=== PATIENT | female | born 1945 | race Caucasian/White ===

== ENCOUNTER 2017-02-27 12:41 | Observation (INO) | payer OTHER, MEDICARE ==
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
[2017-02-27 13:06] LABS: % IMMATURE GRANULYOCYTES 0.3 % (0.0-1.1); ABSOLUTE IMMATURE GRANULOCYTES 0.02 10^3/uL (0.00-0.10); ADD DIFF? NO; ADD MORPH? NO; ADD SCAN? NO; ATYPICAL LYMPHOCYTE FLAG 0 (0-99); FRAGMENT RBC FLAG 0 (0-99); HEMATOCRIT 43.3 % (38.0-47.0); HEMOGLOBIN 14.6 g/dL (12.6-16.3); LEFT SHIFT FLG 0 (0-99); LIPEMIA HEMOLYSIS FLAG 80 (0-99); MEAN CELL HEMOGLOBIN 31.6 pg (27.9-34.1); MEAN CELL HEMOGLOBIN CONCENTR. 33.7 g/dL (32.4-36.7); MEAN CELL VOLUME 93.7 fL (81.5-99.8); MEAN PLATELET VOLUME 10.7 fL (8.7-11.7); PLATELET CLUMPS FLAG 40 (0-99); PLATELET COUNT 214 10^3/uL (150-400); RED BLOOD CELL COUNT 4.62 10^6/uL (4.18-5.33); RED CELL DISTRIBUTION WIDTH 12.8 % (11.5-15.2)
[2017-02-27 13:16] LABS: PROTIME(PATIENT) 13.1 SEC (12.0-15.0)
[2017-02-27 13:17] LABS: APTT 26.4 SEC (23.0-38.0)
[2017-02-27 13:20] LABS: ANION GAP 12 mEq/L (8-16); CALCIUM 9.5 mg/dL (8.5-10.4); CARBON DIOXIDE 22 mEq/l (22-31); CHLORIDE 103 mEq/L (97-110); CREATININE 1.1 mg/dL (0.6-1.0); GLOMERULAR FILTRATION RATE 49; GLUCOSE 86 mg/dL (70-100); POTASSIUM 4.4 mEq/L (3.5-5.2); SODIUM 137 mEq/L (134-144)
--- NOTE | 2017-02-27 13:30 | CPEKG ---
Heart Rate: 72 RR Interval: 833 P-R Interval: 160 QRSD Interval: 82 QT Interval: 388 QTC Interval: 425 P Collins: 64 QRS Collins: 39 T Wave Collins: 68 EKG Severity - BORDERLINE ECG - EKG Impression: SINUS RHYTHM EKG Impression: PROBABLE LEFT ATRIAL ABNORMALITY Electronically Signed By: Neris Zeng 27-Feb-2017 18:13:59
[2017-02-27] MEDS ORDERED: ONDANSETRON DISINTEGRATING 4 MG TAB PO PRN (16:21)
[2017-02-27] MEDS ORDERED: ACETAMINOPHEN 325 MG TAB PO PRN (16:21)
[2017-02-27] MEDS ORDERED: ONDANSETRON 4 MG/2 ML VIAL IVP PRN (16:21)
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
[2017-02-27 17:29] LABS: ETHANOL SERUM < 10 mg/dL (0-10)
[2017-02-27] MEDS ORDERED: LORazepam 2 MG/ML INJ IVP ONE (18:15)
[2017-02-27] MEDS: ASPIRIN 81 MG CHEWABLE TAB PO SCH (18:26)
[2017-02-27 23:47] VITALS: TEMP 98.2
[2017-02-28 06:01] LABS: ALANINE AMINOTRANSFERASE 25 IU/L (9-52); ALBUMIN 3.7 g/dL (3.5-5.0); ALKALINE PHOSPHATASE 47 IU/L (38-126); ANION GAP 6 mEq/L (8-16); ASPARTATE AMINOTRANSFERASE 20 IU/L (14-46); BILIRUBIN,TOTAL 1.1 mg/dL (0.1-1.4); CALCIUM 9.1 mg/dL (8.5-10.4); CARBON DIOXIDE 25 mEq/l (22-31); CHLORIDE 107 mEq/L (97-110); CHOLESTEROL 183 mg/dL (140-220); CHOLESTEROL/HDL RATIO 3.21 RATIO (1.00-4.44); GLOMERULAR FILTRATION RATE 55; GLUCOSE 90 mg/dL (70-100); HIGH DENSITY LIPOPROTEIN 57 mg/dL (40-85); LDL/HDL RATIO 1.93 RATIO (1.00-3.22); LOW DENSITY LIPOPROTEIN 110 mg/dL (80-100); NON-HIGH DENSITY LIPOPROTEIN 126 mg/dL (90-129); POTASSIUM 4.3 mEq/L (3.5-5.2); SODIUM 138 mEq/L (134-144); TRIGLYCERIDE 80 mg/dL (35-135); VERY LOW DENSITY LIPOPROTEINS 16 mg/dL (8-25)
[2017-02-28 07:14] LABS: % IMMATURE GRANULYOCYTES 0.2 % (0.0-1.1); ABSOLUTE IMMATURE GRANULOCYTES 0.01 10^3/uL (0.00-0.10); ADD DIFF? NO; ADD MORPH? NO; ADD SCAN? NO; ATYPICAL LYMPHOCYTE FLAG 0 (0-99); FRAGMENT RBC FLAG 0 (0-99); HEMATOCRIT 42.4 % (38.0-47.0); HEMOGLOBIN 14.4 g/dL (12.6-16.3); LEFT SHIFT FLG 0 (0-99); LIPEMIA HEMOLYSIS FLAG 90 (0-99); MEAN CELL HEMOGLOBIN 31.7 pg (27.9-34.1); MEAN CELL VOLUME 93.4 fL (81.5-99.8); MEAN PLATELET VOLUME 11.2 fL (8.7-11.7); PLATELET CLUMPS FLAG 0 (0-99); PLATELET COUNT 209 10^3/uL (150-400); RED BLOOD CELL COUNT 4.54 10^6/uL (4.18-5.33); RED CELL DISTRIBUTION WIDTH 12.9 % (11.5-15.2)
[2017-02-28 07:28] VITALS: BP 125/81; PULSE 78; RESP 16; O2SAT 96
[2017-02-28] MEDS: ASPIRIN 81 MG CHEWABLE TAB PO SCH (08:42)
[2017-02-28] MEDS ORDERED: PARoxetine HCL 10 MG TAB PO SCH (09:00)
[2017-02-28] MEDS ORDERED: Herbals/Supplements -Info Only PO SCH (09:00)
[2017-02-28 09:49] LABS: HEMOGLOBIN A1C 5.6 % (4.0-6.0)
--- NOTE | 2017-02-28 10:36 | ECHO ---
[id number] + + [id number] : : [place] [address] : : [phone] + + Adult Echocardiographic Report + -----+ :Name: SULLY SOUSA LStudy Date: 02/28/2017 07:42 AM : : Hospital Admission Number: [id number] Location : 240: :: 1945 Gender: Female Height: 63 in : :Age: 71 yrs Race: WH Weight: 125 lb : :Reason For Study: Eval Valves : : BSA: 1.6 meters2 : :History: Trans global amnesia : + -----+ MMode/2D Measurements \T\ Calculations IVSd: 0.75 cm LVIDd: 2.9 cm FS: 39.3 % Ao root diam: 2.7 cm LVPWd: 0.90 cm LVIDs: 1.8 cm EDV(Teich): 33.1 ml ACS: 1.6 cm ESV(Teich): 9.5 ml EF(Teich): 71.5 % Normal Measurement Values: + + :LVIDd (3.5-5.7cm) IVSd (0.6-1.1cm) LVPWd (0.6-1.1cm) Aortic Root (2.0-3.7cm)Left Atrium (1.5-4.0cm): :LV Vol(d) (76-115ml) LV Vol(s) (29-48ml) Ejec Fraction (50-65%)PV Joce (0.6- 1.2m/s) TV Joce (0.4-1.0m/s) : :MV E Joce (0.8-1.0m/s)MV A Joce (0.3-1.0m/s)LVOT Joce (0.7-1.2m/s) Asc Ao Joce ( 0.9-1.8m/s) : + + Doppler Measurements \T\ Calculations MV E max joce: Ao V2 max: LV V1 max: PA V2 max: 60.2 cm/sec 96.4 cm/sec 75.0 cm/sec 88.2 cm/sec MV A max joce: Ao max PG: LV V1 max PG: PA max P.0 cm/sec 3.7 mmHg 2.3 mmHg 3.1 mmHg MV E/A: 0.81 Left Ventricle The left ventricle is normal in size. There is normal left ventricular wall thickness. The left ventricular ejection fraction is normal. There is Doppler evidence for diastolic dysfunction. Ejection Fraction = 72%. The left ventricular wall motion is normal. Right Ventricle The right ventricle is normal in size and function. Atria The left atrial size is normal. Right atrial size is normal. Mitral Valve The mitral valve is normal in structure and function. There is no mitral valve stenosis. There is no mitral regurgitation noted. Tricuspid Valve The tricuspid valve is normal in structure and function. No tricuspid regurgitation. Aortic Valve The aortic valve is not well visualized. There is no aortic stenosis. There is no aortic insufficiency. Pulmonic Valve The pulmonic valve is not well visualized. There is no pulmonic valvular regurgitation. Great Vessels The aortic root is normal size. Pericardium/Pleural Small anterior pericardial effusion. Conclusion A complete two-dimensional transthoracic echocardiogram was performed (2D, M-mode, Doppler and color flow Doppler). 1. The left ventricle is normal in size. There is normal left ventricular wall thickness. The Ejection Fraction = 72%. 2. The mitral valve is normal in structure and function. 3. The aortic valve is not well visualized. There is no aortic stenosis. There is no aortic insufficiency. 4. Small anterior pericardial effusion. 5. No old studies for comparison. Final Reading Physician: Jayant Osorio MD electronically signed on 02/28/2017 10:35 AM Ordering Physician: Jayant Coffman Performed By: Sigifredo Rutledge, FRENCHCS
--- NOTE | 2017-02-28 19:40 | NEUROPROG ---
Assessment: CC: Dr. Tony Coffman consulted neurology for amnesia. Results of the evaluation were placed in the EMR for his review. HPI: This 71F patient was initially seen as an inpatient consult at [facility] on . She was in her normal state of good health on 02/27/17 when she had sudden onset inability to form short term memories. She presented to the [facility] ER and had a normal head CT. Her exam showed no neurologic problems other than impaired short-term memory. It was felt she was likely having transient global amnesia but as she had no family to care for her and was impaired she required admission. When I evaluated the patient, all her symptoms had resolved and she had no memory impairment. PMHx: CKD, osteopenia Home Meds: paxil SHx: no tobacco FHx: [place] ROS: Pt denied acute fever, total vision loss, active severe chest pain, respiratory failure, total body severe rash, total bowel/bladder incontinence, psychosis, active seizures, or active bleeding O: VS bp 125/81 P78 RR16 Satting 96% RA Temp 36.8C NSR General: Alert Eyes: Fundoscopic exam not able to visualize optic disks CV: Heart RRR, no murmur, no carotid bruit Lungs: Clear to auscultation bilaterally, no rhonci or rales Neuro: - Mental: . Oriented x person/place/date . concentration appears normal . speech fluency/comprehension normal . memory appears normal . fund of knowledge appear intact - Cranial Nerves: . II: PERRL, VFFTC . III/IV/: EOMI, no nystagmus, normal smooth pursuits, no Ptosis . V: facial sensation intact to LT . VII: face symmetric to eye closure and smile . VIII: hearing intact to conversation . IX/X: uvula raises symmetrically . XI: SCM 5/5 B/L strength . XII: tongue protrudes midline w/nl strength - Motor: . Tone: normal tone in all 4 extrem . Strength: no pronator drift, strength 5/5 throughout (B/L delt, bic, tri, hand glove examiner, hf/he, df/pf) - Reflexes: B/L bic/BR/patella 2/4 - Sensory: all 4 extrem intact to light touch - Coord: [id number] wnl, HAMMAD wnl, [id number] wnl - Gait: deferred Labs: 02/27/17- UTox neg, Alcohol neg 02/28/17- CBC wnl, CMP Anion gap 6L, LDL 110H Rads: 02/27/17- brain MRI w/o con: no acute stroke or changes, mild CMVD (I personally visualized the images on 02/28/17) 02/27/17- Carotid U/S: no hemodynamically significant stenosis Assessment: 1. Transient Global Amnesia: Normal neurologic exam on 02/28/17 and normal brain MRI on 02/27/17. Symptoms consistent with TGA which is a self-limited condition and requires not treatment. Given the small chance this was an atypical TIA, I recommend the patient begin aspirin 81mg qd and f/u with me in 4-6 weeks. Plan: - Aspirin 81mg qd - F/U in 4-6 weeks in neurology clinic Objective: Vital Signs Temp Pulse Resp BP Pulse Ox 36.8 C 78 16 125/81 H 96 02/28/17 07:26 02/28/17 07:26 02/28/17 07:26 02/28/17 07:26 02/28/17 07:26 Laboratory Results 02/28/17 05:15 02/28/17 05:15 02/27/17 02/28/17 03/01/17 05:59 05:59 05:59 Intake Total 480 Output Total 650 Balance -170 PT 13.1 SEC (12.0-15.0) 02/27/17 12:55 INR 1.00 (0.83-1.16) 02/27/17 12:55 Allergies/Adverse Reactions: No Known Allergies Allergy (Unverified 11/15/15 16:50)
--- NOTE | 2017-02-28 21:58 | PDDCSUM ---
Discharge Summary Discharge Summary: Discharge Diagnoses 1. Transient Global Amnesia 2. Elevated blood pressure Consultations: Neurology (Dr. Elmore) Procedures: minimal carotid stenosis on CUS, no CVA but white matter disease present frontal/parietal on MRI, Echo w/ diastolic dysfunction but normal mitral valve Subjective: Feeling well, memory of today's events good Physical exam: VSS, AAOx3, memory sound, interactive Hospital Course by Problem 1. TGA. Patient had symptoms of transient global amnesia for approx 24hrs w/o any other neuro symptoms. TGA is the most likely cause, although atypical TIA also a consideration, and she'll receive empiric ASA 81mg daily, as well a f/u w / Dr. Elmore 4-6 weeks. 2. Elevated blood pressure. Likely 2/2 distress, although TIA-induced is possible. SBP 110-150 on date of discharge. Recommend outpt f/u monitoring, given diastolic dysfunction on Echo. Discharge medications: please see official discharge medication rec sheet, of note, start ASA 81 daily.
== END 2017-02-28 15:44 | disposition home or self-care (01) ==
LOC: EDUNIT# → F2N 17:10
PROVIDERS: ADMIT Internal Medicine; ATTEND Internal Medicine
DX: G45.4 Transient global amnesia (principal); R03.0 Elevated blood-pressure reading, without diagnosis of hypertension; N18.3 Chronic kidney disease, stage 3 (moderate); Z82.49 Family history of ischemic heart disease and other diseases of the circulatory system
CPT/HCPCS: 70450; 70551; 92523; 93005; 93306; 93880; 97166; 99285; G0378; G8987; G8988; G8989; G9165; G9166; G9167; J2060; 80305; G0480

== ENCOUNTER → 2017-09-02 | Outpatient (CLI) | payer OTHER, MEDICARE | LOC: FIMAGING 11:42 | PROVIDERS: ATTEND Family Medicine | DX: Z12.31 Encounter for screening mammogram for malignant neoplasm of breast (principal) | CPT/HCPCS: G0202 ==

== ENCOUNTER → 2017-11-28 | Outpatient (CLI) | payer OTHER, MEDICARE | LOC: FIMAGING 10:03 | PROVIDERS: ATTEND Family Medicine | DX: Z13.820 Encounter for screening for osteoporosis (principal); M81.0 Age-related osteoporosis without current pathological fracture; Z87.310 Personal history of (healed) osteoporosis fracture ==

== ENCOUNTER → 2018-03-21 | Outpatient (CLI) | payer OTHER, MEDICARE | LOC: FIMAGING 09:48 | PROVIDERS: ATTEND Physician Assistant Medical | DX: S92.534A Nondisplaced fracture of distal phalanx of right lesser toe(s), initial encounter for closed fracture (principal); M81.0 Age-related osteoporosis without current pathological fracture; M85.80 Other specified disorders of bone density and structure, unspecified site ==

== ENCOUNTER → 2018-10-10 | Outpatient (CLI) | payer OTHER, MEDICARE | LOC: FIMAGING 11:32 | PROVIDERS: ATTEND Family Medicine | DX: Z12.31 Encounter for screening mammogram for malignant neoplasm of breast (principal) ==